=== PATIENT | female | born 1945 | race Caucasian/White ===

== ENCOUNTER 2018-01-29 03:23 | Inpatient (IN) | payer OTHER, MEDICARE ==
[~2018-01-29] VITALS: Ht 162.6 cm; Wt 59.0 kg
[2018-01-29] VITALS (9 sets, daily range): BP systolic 117–145; BP diastolic 58–78; PULSE 62–84; RESP 16–19; TEMP 97.8–98.3; O2SAT 93–100
[2018-01-29] MEDS ORDERED: APIX5TAB PO (03:39)
[2018-01-29] MEDS ORDERED: AMIO0.1T PO (03:39)
[2018-01-29] MEDS ORDERED: SYNT25TA PO (03:39)
[2018-01-29] MEDS ORDERED: VENL100T PO (03:39)
[2018-01-29] MEDS ORDERED: SODIUM CHLORIDE 0.9% FLUSH 10 ML FLUSH IVF PRN (04:00)
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
[2018-01-29 04:27] LABS: AUTOMATED NEUTROPHIL # 18.5 TH/MM3 (1.8-7.7); BASOPHIL % 0.2 % (0.0-2.0); HEMATOCRIT 29.4 % (35.0-46.0); HEMOGLOBIN 10.1 GM/DL (11.6-15.3); LYMPH % 2.5 % (9.0-44.0); LYMPHOCYTE # 0.5 TH/MM3 (1.0-4.8); MEAN CELL VOLUME 95.5 FL (80.0-100.0); MEAN CORPUSCULAR HEMOGLOBIN 32.7 PG (27.0-34.0); MEAN CORPUSCULAR HGB CONC 34.2 % (32.0-36.0); MEAN PLATELET VOLUME 8.9 FL (7.0-11.0); MONO % 5.6 % (0.0-8.0); MONOCYTE # 1.1 TH/MM3 (0-0.9); NEUT % 91.7 % (16.0-70.0); PLATELET COUNT 254 TH/MM3 (150-450); RED BLOOD COUNT 3.08 MIL/MM3 (4.00-5.30); RED CELL DISTRIBUTION WIDTH 13.6 % (11.6-17.2); WHITE BLOOD COUNT 20.2 TH/MM3 (4.0-11.0)
[2018-01-29 04:35] LABS: BICARBONATE 27.6 MEQ/L (21.0-32.0); CALCIUM 6.5 MG/DL (8.5-10.1); CREATININE 0.93 MG/DL (0.50-1.00)
[2018-01-29 04:36] LABS: INTERNATIONAL NORMALIZED RATIO 1.1 RATIO; PROTHROMBIN TIME - PATIENT 10.8 SEC (9.8-11.6)
[2018-01-29] MEDS ORDERED: CHLORHEXIDINE GLUCONATE 2 % 1 PACK (2 CLOTHS) TOP PRN (04:45)
[2018-01-29] MEDS ORDERED: NURSING INFORMATION XX SCH (04:45)
[2018-01-29 04:48] LABS: TOTAL PROTEIN 6.1 GM/DL (6.4-8.2)
[2018-01-29 05:00] LABS: BANDS 7 % (0-6); LYMPHOCYTES 5 % (9-44); MONOCYTES 3 % (0-8); NEUTROPHIL # MANUAL DIFF 18.6 TH/MM3 (1.8-7.7); POLYS (SEG NEUTROPHILS) 85 % (16-70)
[2018-01-29 05:01] LABS: TOXIC GRANULATION 1+ (NORMAL)
[2018-01-29] MEDS ORDERED: MORPHINE SULFATE 4 MG/ML INJ IV PUSH PRN ×3 (06:15→11:00)
[2018-01-29] MEDS: ONDANSETRON HCL 4 MG/2 ML VIAL IV PUSH PRN ×4 (06:21→22:54)
[2018-01-29] MEDS: MORPHINE SULFATE 4 MG/ML INJ IV PUSH PRN ×2 (06:22→09:10)
[2018-01-29 07:59] LABS: HEMATOCRIT 29.8 % (35.0-46.0); HEMOGLOBIN 9.9 GM/DL (11.6-15.3)
[2018-01-29] MEDS: DOCUSATE SODIUM 100 MG CAP PO SCH ×3 (09:10→21:00)
[2018-01-29] MEDS: SODIUM CHLORIDE 0.9% FLUSH 10 ML FLUSH IV FLUSH PRN (09:11)
[2018-01-29] MEDS: LACTATED RINGER'S 1000 ML INJ 1,000 ML IV SCH ×3 (09:12→20:04)
[2018-01-29] MEDS: LIDOCAINE HCL 5% PATCH T-DERMAL SCH (10:39)
[2018-01-29] MEDS: LEVOTHYROXINE SODIUM 25 MCG TAB PO SCH (10:39)
[2018-01-29] MEDS: DIAZEPAM 2 MG TAB PO SCH ×2 (11:31→20:03)
[2018-01-29 11:32] LABS: HEMATOCRIT 28.6 % (35.0-46.0); HEMOGLOBIN 9.6 GM/DL (11.6-15.3)
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
[2018-01-29] MEDS: AMIODARONE 200 MG TAB PO SCH (12:38)
[2018-01-29] MEDS: ACETAMINOPHEN/HYDROcodone 325 MG/5 MG TAB PO PRN (13:41)
[2018-01-29] MEDS: VENLAFAXINE HCL 75 MG TAB PO SCH (14:39)
[2018-01-29] MEDS: ACETAMINOPHEN/HYDROcodone 325 MG/7.5 MG TAB PO PRN (17:13)
[2018-01-29] MEDS: REMOVE OLD PATCH T-DERMAL SCH (20:03)
[2018-01-29] MEDS ORDERED: ONDANSETRON HCL 4 MG/2 ML VIAL IV PUSH ONE (21:15)
[2018-01-29] MEDS ORDERED: ACETAMINOPHEN 325 MG TAB PO PRN (22:00)
[2018-01-30] VITALS (13 sets, daily range): BP systolic 142–181; BP diastolic 66–79; PULSE 70–87; RESP 14–27; TEMP 97.9–98.4; O2SAT 92–100
[2018-01-30] MEDS: ACETAMINOPHEN 325 MG TAB PO PRN ×2 (02:26→08:41)
[2018-01-30] MEDS: DIAZEPAM 2 MG TAB PO SCH ×3 (03:20→21:09)
[2018-01-30] MEDS: ONDANSETRON HCL 4 MG/2 ML VIAL IV PUSH PRN ×3 (03:20→12:15)
[2018-01-30] MEDS: CHLORHEXIDINE GLUCONATE 2 % 1 PACK (2 CLOTHS) TOP SCH ×2 (03:38→21:11)
--- NOTE | 2018-01-30 03:45 | RADRPT ---
EXAM DATE/TIME: 01/30/2018 02:50 [facility] COMPARISON: No previous studies available for comparison. INDICATIONS : Short of breath. MEDICAL HISTORY : None. SURGICAL HISTORY : None. ENCOUNTER: Initial ACUITY: 1 day PAIN SCORE: 0/10 LOCATION: Bilateral chest FINDINGS: A single view of the chest demonstrates the lungs to be symmetrically aerated without evidence of mas s, infiltrate or effusion. The cardiomediastinal contours are unremarkable. Questionable right fifth rib fracture. CONCLUSION: Lungs are grossly clear. Question right fifth rib fracture, age indeterminate. Jefry Jain MD on January 30, 2018 at 3:43 Board Certified Radiologist. This report was verified electronically.
[2018-01-30] MEDS: LEVOTHYROXINE SODIUM 25 MCG TAB PO SCH (06:00)
[2018-01-30 06:57] LABS: AUTOMATED NEUTROPHIL # 10.8 TH/MM3 (1.8-7.7); BASOPHIL % 0.3 % (0.0-2.0); EOSINOPHIL % 0.1 % (0.0-4.0); HEMATOCRIT 24.7 % (35.0-46.0); HEMOGLOBIN 8.3 GM/DL (11.6-15.3); LYMPH % 6.4 % (9.0-44.0); LYMPHOCYTE # 0.8 TH/MM3 (1.0-4.8); MEAN CELL VOLUME 96.2 FL (80.0-100.0); MEAN CORPUSCULAR HEMOGLOBIN 32.5 PG (27.0-34.0); MEAN CORPUSCULAR HGB CONC 33.8 % (32.0-36.0); MEAN PLATELET VOLUME 8.5 FL (7.0-11.0); MONO % 6.7 % (0.0-8.0); MONOCYTE # 0.8 TH/MM3 (0-0.9); NEUT % 86.5 % (16.0-70.0); PLATELET COUNT 241 TH/MM3 (150-450); RED BLOOD COUNT 2.56 MIL/MM3 (4.00-5.30); RED CELL DISTRIBUTION WIDTH 13.3 % (11.6-17.2); WHITE BLOOD COUNT 12.5 TH/MM3 (4.0-11.0)
[2018-01-30 07:28] LABS: BICARBONATE 28.2 MEQ/L (21.0-32.0); CALCIUM 6.8 MG/DL (8.5-10.1); CREATININE 0.64 MG/DL (0.50-1.00)
[2018-01-30 07:44] LABS: TOTAL PROTEIN 6.4 GM/DL (6.4-8.2)
[2018-01-30 07:49] LABS: CALCIUM-PROTEIN CORRECTED 7.2 MG/DL (8.5-10.1)
[2018-01-30] MEDS: AMIODARONE 200 MG TAB PO SCH (08:32)
[2018-01-30] MEDS: VENLAFAXINE HCL 75 MG TAB PO SCH (08:32)
[2018-01-30] MEDS: DOCUSATE SODIUM 100 MG CAP PO SCH ×2 (08:32→21:09)
[2018-01-30] MEDS: LIDOCAINE HCL 5% PATCH T-DERMAL SCH (08:33)
[2018-01-30] MEDS: ACETAMINOPHEN 1000 MG/100 ML 100 ML IV SCH ×3 (10:00→21:11)
[2018-01-30] MEDS: FAMOTIDINE 20 MG/2 ML VIAL IV PUSH SCH ×2 (10:15→21:10)
[2018-01-30] MEDS: LACTATED RINGER'S 1000 ML INJ 1,000 ML IV SCH ×2 (10:38→14:39)
[2018-01-30] MEDS ORDERED: IOHEXOL 350 MG/ML 10 ML VIAL (for RAD DIAG) IVCONTRAST ONE (11:25)
--- NOTE | 2018-01-30 11:38 | EKG ---
Date Performed: 01/29/2018 Time Performed: 13:26:44 PTAGE: 72 years EKG: Sinus rhythm NORMAL ECG NO PREVIOUS TRACING DOCTOR: Jonnathan Orourke Interpretating Date/Time 01/30/2018 11:37:20
--- NOTE | 2018-01-30 11:45 | RADRPT ---
EXAM DATE/TIME: 01/30/2018 11:22 [facility] COMPARISON: CHEST SINGLE AP, January 30, 2018, 2:50. INDICATIONS : Shortness of breath. IV CONTRAST: 96 cc Omnipaque 350 (iohexol) IV RADIATION DOSE: 5.74 CTDIvol (mGy) MEDICAL HISTORY : Cardiovascular disease. SURGICAL HISTORY : Hysterectomy. ENCOUNTER: Initial ACUITY: 1 day PAIN SCALE: 0/10 LOCATION: Bilateral chest TECHNIQUE: Volumetric scanning of the chest was performed. Using automated exposure control and adjustment of t he mA and/or kV according to patient size, radiation dose was kept as low as reasonably achievable to obtain optimal diagnostic quality images. DICOM format image data is available electronically for review and comparison. Follow-up recommendations for detected pulmonary nodules are based at a minimum on nodule size and pa tient risk factors according to Fleischner Society Guidelines. FINDINGS: LUNGS: Areas of passive atelectasis adjacent to the effusions. It is more pronounced on the left than the ri ght. The aerated portions of lungs are clear. No bronchiectasis or pneumothorax. PLEURA: Small posterior layering pleural effusions bilaterally. MEDIASTINUM: The heart and great vessels demonstrate no acute abnormality. There is no mediastinal or hilar lymph adenopathy. No retrosternal hematoma. AXILLAE: Within normal limits. No lymphadenopathy. SKELETAL: Within normal limits for patient age. An old right fifth rib fracture laterally. MISCELLANEOUS: See the CT of the abdomen and pelvis reported separately.. CONCLUSION: 1. Small posterior layering pleural effusions bilaterally with associated passive atelectasis. 2. No retrosternal hematoma. Sebastien Salguero Jr., MD on January 30, 2018 at 11:38 Board Certified Radiologist. This report was verified electronically.
--- NOTE | 2018-01-30 12:04 | RADRPT ---
EXAM DATE/TIME: 01/30/2018 11:22 [facility] COMPARISON: No previous studies available for comparison. EXTERNAL COMPARISON : [facility], INDICATIONS : Diffuse abdomen pain. IV CONTRAST: 96 cc Omnipaque 350 (iohexol) IV ; Cumulative dose for multiple exams. ORAL CONTRAST: Prescribed oral contrast ingested. RADIATION DOSE: 5.74 CTDIvol (mGy) ; Combined studies MEDICAL HISTORY : Cardiovascular disease. SURGICAL HISTORY : Hysterectomy. ENCOUNTER: Initial ACUITY: 1 day PAIN SCALE: 5/10 LOCATION: Bilateral abdomen TECHNIQUE: Volumetric scanning of the abdomen and pelvis was performed. Using automated exposure control and ad justment of the mA and/or kV according to patient size, radiation dose was kept as low as reasonably achievable to obtain optimal diagnostic quality images. DICOM format image data is available electro nically for review and comparison. FINDINGS: LOWER LUNGS: There are mild bilateral pleural effusions with accompanying areas of suspected compressive atelectas is at the lung bases. LIVER: The liver demonstrates decreased attenuation. There is a 0.9 cm suspected cyst in the left lobe. Ther e is high density layering material within the gallbladder likely related to vicarious excretion of c ontrast if the patient had recent contrast administration versus milk of calcium. SPLEEN: Normal size without lesion. PANCREAS: Within normal limits. KIDNEYS: Normal in size and shape. There is no mass, stone or hydronephrosis. ADRENAL GLANDS: Within normal limits. VASCULAR: There is no aortic aneurysm. Atherosclerotic calcifications are seen. BOWEL/MESENTERY: There is a 3.2 cm duodenal diverticulum. There are colonic diverticula seen being most numerous in th e sigmoid region. There is a mild amount of free fluid seen around the liver and spleen and in the mi d and lower pelvis. This appears somewhat increased in density raising the possibility of hemorrhage. The the fluid includes a more focal area in the mid pelvis measuring 5.2 x 5.6 x 4.3 cm which may be a hematoma in the lower mesentery. It is difficult to determine if this fluid is free or not. ABDOMINAL WALL: Within normal limits. RETROPERITONEUM: There is no lymphadenopathy. BLADDER: No wall thickening or mass. REPRODUCTIVE: The patient is status post hysterectomy. INGUINAL: There is no lymphadenopathy or hernia. MUSCULOSKELETAL: Within normal limits for patient age. CONCLUSION: 1. Free intraperitoneal fluid. This is of increased density raising the possibility of this being a h emoperitoneum. There is a more focal 5.6 cm fluid collection in the mid pelvis which may be a mesente cedric hematoma. 2. Mild hepatic steatosis. 3. Colonic diverticula. 4. Duodenal diverticulum. 5. Increased density within the gallbladder likely related to vicarious excretion if the patient had recent contrast administration versus milk of calcium. 6. Mild bilateral pleural effusions with accompanying areas of atelectasis. Miguel Alfredo MD on January 30, 2018 at 11:47 Board Certified Radiologist. This report was verified electronically.
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
[2018-01-30] MEDS: REMOVE OLD PATCH T-DERMAL SCH (21:11)
[2018-01-31] VITALS (17 sets, daily range): BP systolic 139–188; BP diastolic 65–93; PULSE 64–107; RESP 13–27; TEMP 97.2–98.7; O2SAT 92–100
[2018-01-31 05:07] LABS: AUTOMATED NEUTROPHIL # 11.9 TH/MM3 (1.8-7.7); BASOPHIL # 0.1 TH/MM3 (0-0.2); BASOPHIL % 0.6 % (0.0-2.0); EOSINOPHIL # 0.2 TH/MM3 (0-0.4); EOSINOPHIL % 1.2 % (0.0-4.0); HEMATOCRIT 23.2 % (35.0-46.0); HEMOGLOBIN 7.9 GM/DL (11.6-15.3); LYMPH % 3.9 % (9.0-44.0); LYMPHOCYTE # 0.5 TH/MM3 (1.0-4.8); MEAN CELL VOLUME 96.6 FL (80.0-100.0); MEAN CORPUSCULAR HGB CONC 34.2 % (32.0-36.0); MEAN PLATELET VOLUME 8.2 FL (7.0-11.0); MONO % 5.6 % (0.0-8.0); MONOCYTE # 0.7 TH/MM3 (0-0.9); NEUT % 88.7 % (16.0-70.0); PLATELET COUNT 223 TH/MM3 (150-450); RED CELL DISTRIBUTION WIDTH 13.3 % (11.6-17.2); WHITE BLOOD COUNT 13.4 TH/MM3 (4.0-11.0)
[2018-01-31] MEDS: ACETAMINOPHEN 1000 MG/100 ML 100 ML IV SCH ×3 (05:24→17:49)
[2018-01-31] MEDS: DIAZEPAM 2 MG TAB PO SCH ×3 (05:24→20:12)
[2018-01-31] MEDS: ACETAMINOPHEN/HYDROcodone 325 MG/7.5 MG TAB PO PRN (05:25)
[2018-01-31 05:37] LABS: CALCIUM 6.7 MG/DL (8.5-10.1); CREATININE 0.54 MG/DL (0.50-1.00); TOTAL BILIRUBIN ADULT 0.4 MG/DL (0.2-1.0); TOTAL PROTEIN 6.1 GM/DL (6.4-8.2)
[2018-01-31 05:41] LABS: CALCIUM-PROTEIN CORRECTED 7.2 MG/DL (8.5-10.1)
--- NOTE | 2018-01-31 06:06 | RADRPT ---
EXAM DATE/TIME: 01/31/2018 05:30 [facility] COMPARISON: CHEST SINGLE AP, January 30, 2018, 2:50. INDICATIONS : Short of breath. MEDICAL HISTORY : None. SURGICAL HISTORY : None. ENCOUNTER: Subsequent ACUITY: 2 days PAIN SCORE: Non-responsive. LOCATION: Bilateral chest FINDINGS: A single view of the chest demonstrates persistent bilateral lower lobe infiltrates and small bilater al pleural effusions. Diffuse pulmonary vascular congestion. The cardiomediastinal contours are unre markable. Osseous structures are intact. CONCLUSION: Bilateral lower lobe infiltrates with small pleural effusions. Patchy perihilar infiltrates are uncha nged Jefry Jain MD on January 31, 2018 at 6:04 Board Certified Radiologist. This report was verified electronically.
[2018-01-31] MEDS: LEVOTHYROXINE SODIUM 25 MCG TAB PO SCH (06:55)
[2018-01-31] MEDS: DOCUSATE SODIUM 100 MG CAP PO SCH ×2 (08:43→20:12)
[2018-01-31] MEDS: FAMOTIDINE 20 MG/2 ML VIAL IV PUSH SCH ×2 (08:43→20:12)
[2018-01-31] MEDS: VENLAFAXINE HCL 75 MG TAB PO SCH (08:43)
[2018-01-31] MEDS: AMIODARONE 200 MG TAB PO SCH (08:43)
[2018-01-31] MEDS: LIDOCAINE HCL 5% PATCH T-DERMAL SCH (08:43)
[2018-01-31] MEDS: LACTATED RINGER'S 1000 ML INJ 1,000 ML IV SCH (09:34)
[2018-01-31] MEDS ORDERED: FUROSEMIDE 20 MG/2 ML VIAL IV PUSH ONE ×2 (09:45→13:30)
[2018-01-31] MEDS: GABAPENTIN 300 MG CAP PO SCH ×2 (12:34→17:49)
[2018-01-31] MEDS ORDERED: POTASSIUM CHLORIDE 20 MEQ CONTROLLED RELEASE TAB PO ONE (13:30)
[2018-01-31] MEDS ORDERED: POTASSIUM CHLOR 20 MEQ PREMIX 100 ML IV ONE (13:30)
[2018-01-31] MEDS ORDERED: POTASSIUM CHLOR 40 MEQ PREMIX 100 ML IV PRN ×2 (13:45)
[2018-01-31] MEDS ORDERED: POTASSIUM PHOSPHATE INJ 30 MMOL in SODIUM CHLOR 0.9% 250 ML INJ 250 ML IV PRN (13:45)
[2018-01-31] MEDS ORDERED: SODIUM PHOSPHATE INJ 30 MMOL in SODIUM CHLOR 0.9% 250 ML INJ 240 ML IV PRN (13:45)
[2018-01-31] MEDS ORDERED: MAGNESIUM OXIDE 400 MG TAB PO PRN (13:45)
[2018-01-31] MEDS ORDERED: POTASSIUM PHOSPHATE MONOBASIC 500 MG TAB PO PRN (13:45)
[2018-01-31] MEDS ORDERED: MAGNESIUM SULFATE INJ 2 GM in SODIUM CHLORIDE 0.9% INJ 96 ML IV PRN (13:45)
[2018-01-31] MEDS ORDERED: POTASSIUM PHOSPHATE MONOBASIC 500 MG TAB PO/TUBE PRN (13:45)
[2018-01-31] MEDS ORDERED: POTASSIUM CHLORIDE 25 MEQ EFFERVESCENT TAB PO PRN ×2 (13:45)
[2018-01-31] MEDS ORDERED: POTASSIUM CHLOR 20 MEQ PREMIX 100 ML IV PRN ×2 (13:45)
[2018-01-31] MEDS ORDERED: MAGNESIUM SULFATE INJ 4 GM in SODIUM CHLORIDE 0.9% INJ 92 ML IV PRN (13:45)
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
[2018-01-31 14:36] LABS: BICARBONATE 32.2 MEQ/L (21.0-32.0); BLOOD UREA NITROGEN 6 MG/DL (7-18); CHLORIDE 88 MEQ/L (98-107); CREATININE 0.52 MG/DL (0.50-1.00); GLOMERULAR FILTRATION RATE 116 ML/MIN (>89); GLUCOSE,RANDOM 117 MG/DL (74-106); SODIUM (NA) 131 MEQ/L (136-145)
[2018-01-31 14:54] LABS: TOTAL PROTEIN 6.9 GM/DL (6.4-8.2); TROPONIN I LESS THAN 0.02 NG/ML (0.02-0.05)
[2018-01-31 15:02] LABS: CALCIUM-PROTEIN CORRECTED 7.1 MG/DL (8.5-10.1)
[2018-01-31] MEDS: HYDROmorphone HCL PF 0.5 MG/0.5 ML SYRINGE IV PUSH PRN ×2 (15:17→21:27)
--- NOTE | 2018-01-31 17:07 | EKG ---
Date Performed: 01/31/2018 Time Performed: 14:08:28 PTAGE: 72 years EKG: Atrial fibrillation with rapid ventricular response. Left axis deviation Left bundle branch block Possible inferior infarct - age undetermined Abnormal ECG PREVIOUS TRACING : 01/29/2018 13.26 DOCTOR: Jefry Mccarty Interpretating Date/Time 01/31/2018 17:06:30
[2018-01-31] MEDS: SODIUM CHLOR 0.9% 1000 ML INJ 1,000 ML IV SCH (17:50)
[2018-01-31] MEDS: REMOVE OLD PATCH T-DERMAL SCH (20:17)
--- NOTE | 2018-01-31 20:30 | ECHRPT ---
Indication: CONCLUSIONS The left ventricular systolic function is normal with an estimated ejection fraction in the range of 55-60%. Trace mitral valve regurgitation. There is mild tricuspid valve regurgitation. A left sided pleural effusion is present. BP: / HR: Rhythm: Sinus MEASUREMENTS (Male / Female) Normal Values Technical Quality:Fair 2D ECHO LV Diastolic Diameter PLAX 4.1 cm 4.2 - 5.9 / 3.9 - 5.3 cm LV Systolic Diameter PLAX 2.8 cm IVS Diastolic Thickness 0.8 cm 0.6 - 1.0 / 0.6 - 0.9 cm LVPW Diastolic Thickness 0.8 cm 0.6 - 1.0 / 0.6 - 0.9 cm LV Relative Wall Thickness 0.4 RV Internal Dim ED PLAX 2.2 cm LVOT Diameter 1.8 cm Aortic Root Diameter 2.9 cm LA Systolic Diameter LX 3.4 cm 3.0 - 4.0 / 2.7 - 3.8 cm M-MODE AV Cusp Separation MM 1.8 cm DOPPLER AV Peak Velocity 142.0 cm/s AV Peak Gradient 8.1 mmHg AV Mean Gradient 5.0 mmHg AV Velocity Time Integral 28.5 cm LVOT Peak Velocity 97.8 cm/s LVOT Peak Gradient 3.8 mmHg LVOT Velocity Time Integral 19.5 cm AV Area Cont Eq vti 1.7 cm AV Area Cont Eq pk 1.8 cm Mitral E Point Velocity 86.9 cm/s Mitral A Point Velocity 85.4 cm/s Mitral E to A Ratio 1.0 LV E' Lateral Velocity 9.8 cm/s Mitral E to LV E' Lateral Ratio 8.8 LV E' Septal Velocity 6.7 cm/s Mitral E to LV E' Septal Ratio 12.9 TR Peak Velocity 300.0 cm/s TR Peak Gradient 36.0 mmHg Right Atrial Pressure 10.0 mmHg Pulmonary Artery Systolic Pressu 46.0 mmHg Right Ventricular Systolic Press 46.0 mmHg PV Peak Velocity 76.7 cm/s PV Peak Gradient 2.4 mmHg FINDINGS LEFT VENTRICLE Normal left ventricular size. Wall thickness is normal. The left ventricular systolic function is normal with an estimated ejection fraction in the range of 55-60%. RIGHT VENTRICLE Normal right ventricular size and systolic function. LEFT ATRIUM The left atrial size is [id number] dilated. RIGHT ATRIUM The right atrial size is mildly dilated. ATRIAL SEPTUM No atrial level shunt is demonstrated by color flow Doppler interrogation. AORTA The aortic root and proximal ascending aorta are normal in size on limited imaging. MITRAL VALVE Grossly normal Trace mitral valve regurgitation. No mitral valve stenosis. AORTIC VALVE Grossly normal. No aortic valve stenosis or regurgitation. TRICUSPID VALVE Grossly normal There is mild tricuspid valve regurgitation. The estimated pulmonary arterial pressure is 46 mmHg. PULMONARY VALVE The pulmonary valve is not well visualized. VESSELS The inferior vena cava is normal in size. PERICARDIUM No pericardial effusion. A left sided pleural effusion is present. Barrett Hayes DO (Electronically Signed) Final Date:31 Jan 2018 20:29
[2018-01-31 23:45] LABS: AUTOMATED NEUTROPHIL # 9.2 TH/MM3 (1.8-7.7); BASOPHIL % 0.2 % (0.0-2.0); EOSINOPHIL % 0.3 % (0.0-4.0); HEMATOCRIT 29.1 % (35.0-46.0); HEMOGLOBIN 10.2 GM/DL (11.6-15.3); LYMPH % 5.7 % (9.0-44.0); LYMPHOCYTE # 0.6 TH/MM3 (1.0-4.8); MEAN CELL VOLUME 95.3 FL (80.0-100.0); MEAN CORPUSCULAR HEMOGLOBIN 33.5 PG (27.0-34.0); MEAN CORPUSCULAR HGB CONC 35.1 % (32.0-36.0); MEAN PLATELET VOLUME 8.1 FL (7.0-11.0); MONO % 7.1 % (0.0-8.0); MONOCYTE # 0.8 TH/MM3 (0-0.9); NEUT % 86.7 % (16.0-70.0); PLATELET COUNT 235 TH/MM3 (150-450); RED BLOOD COUNT 3.05 MIL/MM3 (4.00-5.30); RED CELL DISTRIBUTION WIDTH 13.1 % (11.6-17.2); WHITE BLOOD COUNT 10.6 TH/MM3 (4.0-11.0)
[2018-01-31 23:59] LABS: BICARBONATE 34.2 MEQ/L (21.0-32.0); CALCIUM 6.8 MG/DL (8.5-10.1); CREATININE 0.55 MG/DL (0.50-1.00)
[2018-02-01] VITALS (13 sets, daily range): BP systolic 110–183; BP diastolic 58–81; PULSE 102–114; RESP 13–19; TEMP 97.3–98.7; O2SAT 92–100
[2018-02-01 00:12] LABS: TOTAL PROTEIN 6.9 GM/DL (6.4-8.2)
[2018-02-01 00:22] LABS: CALCIUM-PROTEIN CORRECTED 6.9 MG/DL (8.5-10.1)
[2018-02-01] MEDS: ACETAMINOPHEN 1000 MG/100 ML 100 ML IV SCH ×4 (00:37→15:51)
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
[2018-02-01] MEDS: CHLORHEXIDINE GLUCONATE 2 % 1 PACK (2 CLOTHS) TOP SCH (03:12)
[2018-02-01] MEDS: DIAZEPAM 2 MG TAB PO SCH ×3 (04:40→20:41)
[2018-02-01] MEDS: LEVOTHYROXINE SODIUM 25 MCG TAB PO SCH (04:40)
--- NOTE | 2018-02-01 06:18 | RADRPT ---
EXAM DATE/TIME: 02/01/2018 04:36 [facility] COMPARISON: CHEST SINGLE AP, January 31, 2018, 5:30. INDICATIONS : Shortness of breath. MEDICAL HISTORY : None. SURGICAL HISTORY : None. ENCOUNTER: Subsequent ACUITY: 3 days PAIN SCORE: Non-responsive. LOCATION: Bilateral chest FINDINGS: A single view of the chest demonstrates some increasing obscured left lung base. Small bilateral pleu ral effusions. Mild pulmonary vascular congestion, improved.. The cardiomediastinal contours are unr emarkable. Osseous structures are intact. CONCLUSION: Bilateral pleural effusions with some consolidation in the left lung base. Jefry Jain MD on February 01, 2018 at 6:16 Board Certified Radiologist. This report was verified electronically.
[2018-02-01] MEDS: POLYETHYLENE GLYCOL 17 GM PKG PO SCH (09:00)
[2018-02-01] MEDS: DOCUSATE SODIUM 50 MG/SENNA 8.6 MG TAB PO SCH ×2 (09:45→20:38)
[2018-02-01] MEDS: AMIODARONE 200 MG TAB PO SCH (10:53)
[2018-02-01] MEDS: VENLAFAXINE HCL 75 MG TAB PO SCH (10:53)
[2018-02-01] MEDS: FAMOTIDINE 20 MG TAB PO SCH ×2 (10:53→20:41)
[2018-02-01] MEDS: GABAPENTIN 300 MG CAP PO SCH ×3 (10:53→15:51)
[2018-02-01] MEDS: LIDOCAINE HCL 5% PATCH T-DERMAL SCH (10:55)
[2018-02-01] MEDS: HYDROmorphone HCL PF 0.5 MG/0.5 ML SYRINGE IV PUSH PRN ×3 (11:03→21:55)
[2018-02-01] MEDS: SODIUM CHLOR 0.9% 1000 ML INJ 1,000 ML IV SCH ×2 (13:30→15:57)
[2018-02-01] MEDS: ACETAMINOPHEN/HYDROcodone 325 MG/7.5 MG TAB PO PRN ×2 (14:13→20:41)
[2018-02-01] MEDS: ONDANSETRON HCL 4 MG/2 ML VIAL IV PUSH PRN (14:14)
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
[2018-02-01] MEDS: REMOVE OLD PATCH T-DERMAL SCH (20:49)
[2018-02-02] VITALS (10 sets, daily range): BP systolic 109–145; BP diastolic 55–69; PULSE 97–117; RESP 17–18; TEMP 97.2–98.2; O2SAT 91–98
[2018-02-02] MEDS: ACETAMINOPHEN/HYDROcodone 325 MG/7.5 MG TAB PO PRN ×3 (02:11→10:23)
[2018-02-02] MEDS: CHLORHEXIDINE GLUCONATE 2 % 1 PACK (2 CLOTHS) TOP SCH (04:00)
[2018-02-02] MEDS: HYDROmorphone HCL PF 0.5 MG/0.5 ML SYRINGE IV PUSH PRN ×2 (04:10→08:14)
[2018-02-02] MEDS: DIAZEPAM 2 MG TAB PO SCH ×3 (04:10→21:23)
[2018-02-02 05:12] LABS: HEMATOCRIT 29.8 % (35.0-46.0); HEMOGLOBIN 10.3 GM/DL (11.6-15.3)
[2018-02-02] MEDS: LEVOTHYROXINE SODIUM 25 MCG TAB PO SCH (06:14)
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
[2018-02-02] MEDS ORDERED: PERI PO (06:29)
[2018-02-02] MEDS ORDERED: AMIO200T PO (06:29)
[2018-02-02] MEDS ORDERED: WALKER WHEELS/F1 MIS (06:32)
[2018-02-02] MEDS: LACTULOSE SYRUP 20 GM/30 ML CUP PO ONE ×2 (08:00→10:16)
[2018-02-02] MEDS: AMIODARONE 200 MG TAB PO SCH (08:13)
[2018-02-02] MEDS: GABAPENTIN 300 MG CAP PO SCH ×3 (08:13→17:56)
[2018-02-02] MEDS: LIDOCAINE HCL 5% PATCH T-DERMAL SCH (08:13)
[2018-02-02] MEDS: FAMOTIDINE 20 MG TAB PO SCH ×2 (08:13→21:23)
[2018-02-02] MEDS: VENLAFAXINE HCL 75 MG TAB PO SCH (08:13)
[2018-02-02] MEDS: DOCUSATE SODIUM 50 MG/SENNA 8.6 MG TAB PO SCH ×3 (08:14→21:00)
[2018-02-02] MEDS: POLYETHYLENE GLYCOL 17 GM PKG PO SCH (08:14)
[2018-02-02] MEDS ORDERED: fentaNYL 50 MCG/HR PATCH T-DERMAL SCH (11:00)
[2018-02-02] MEDS ORDERED: FENT50T T-DERMAL (11:17)
[2018-02-02] MEDS ORDERED: HYDR-3583 PO (11:17)
[2018-02-02] MEDS ORDERED: DIAZ2 PO (11:17)
[2018-02-02] MEDS: fentaNYL 50 MCG/HR PATCH T-DERMAL SCH (12:02)
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
[2018-02-02] MEDS: ACETAMINOPHEN/HYDROcodone 325 MG/5 MG TAB PO PRN ×2 (14:25→17:56)
[2018-02-02] MEDS ORDERED: ONDANSETRON ODT 4 MG TAB PO PRN (15:45)
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
[2018-02-02] MEDS ORDERED: METOPROLOL TARTRATE 25 MG TAB PO ONE (18:30)
[2018-02-02] MEDS: REMOVE OLD PATCH T-DERMAL SCH (21:00)
[2018-02-03] VITALS (7 sets, daily range): BP systolic 122–140; BP diastolic 55–76; PULSE 70–127; RESP 16–18; TEMP 97.1–97.9; O2SAT 93–98
[2018-02-03 03:40] LABS: HEMATOCRIT 28.8 % (35.0-46.0); HEMOGLOBIN 9.8 GM/DL (11.6-15.3)
[2018-02-03] MEDS: DIAZEPAM 2 MG TAB PO SCH ×3 (04:34→20:26)
[2018-02-03] MEDS: LEVOTHYROXINE SODIUM 25 MCG TAB PO SCH (04:35)
[2018-02-03] MEDS: DOCUSATE SODIUM 50 MG/SENNA 8.6 MG TAB PO SCH ×2 (08:03→20:27)
[2018-02-03] MEDS: FAMOTIDINE 20 MG TAB PO SCH ×2 (08:03→20:27)
[2018-02-03] MEDS: AMIODARONE 200 MG TAB PO SCH (08:03)
[2018-02-03] MEDS: GABAPENTIN 300 MG CAP PO SCH ×3 (08:03→17:52)
[2018-02-03] MEDS: POLYETHYLENE GLYCOL 17 GM PKG PO SCH (08:03)
[2018-02-03] MEDS: ACETAMINOPHEN/HYDROcodone 325 MG/5 MG TAB PO PRN ×2 (08:04→20:29)
[2018-02-03] MEDS: LIDOCAINE HCL 5% PATCH T-DERMAL SCH (08:04)
[2018-02-03] MEDS: VENLAFAXINE HCL 75 MG TAB PO SCH (08:19)
[2018-02-03] MEDS ORDERED: METOPROLOL TARTRATE 25 MG TAB PO SCH (09:00)
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
[2018-02-03] MEDS: APIXABAN 5 MG TABLET PO SCH ×2 (12:25→20:27)
[2018-02-03] MEDS ORDERED: BISACODYL 10 MG SUPP RECTAL ONE (14:00)
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
[2018-02-03] MEDS ORDERED: METOPROLOL TARTRATE 25 MG TAB PO ONE (15:15)
[2018-02-03] MEDS ORDERED: METO25TA3 PO (16:20)
[2018-02-03] MEDS ORDERED: LIDO1ADH4 T-DERMAL (16:20)
[2018-02-03] MEDS: METOPROLOL TARTRATE 25 MG TAB PO SCH (20:27)
[2018-02-03] MEDS: REMOVE OLD PATCH T-DERMAL SCH (20:30)
[2018-02-04] MEDS: ACETAMINOPHEN/HYDROcodone 325 MG/5 MG TAB PO PRN ×2 (02:10→21:17)
[2018-02-04 03:25] VITALS: BP 130/60; PULSE 106; RESP 17; TEMP 98.1; O2SAT 99
[2018-02-04] MEDS: DIAZEPAM 2 MG TAB PO SCH (05:36)
[2018-02-04] MEDS: LEVOTHYROXINE SODIUM 25 MCG TAB PO SCH (05:37)
[2018-02-04] MEDS ORDERED: OXYGENTANK NAS.CANULA (06:18)
[2018-02-04] MEDS ORDERED: NORC5TAB PO (07:54)
[2018-02-04] MEDS ORDERED: ROBA500T PO (07:54)
[2018-02-04 08:00] VITALS: BP 128/60; PULSE 105; RESP 16; TEMP 98; O2SAT 96
[2018-02-04] MEDS ORDERED: MAGNESIUM CITRATE SOLN 300 ML BTL PO ONE (08:00)
[2018-02-04] MEDS: FAMOTIDINE 20 MG TAB PO SCH ×2 (09:18→21:18)
[2018-02-04] MEDS: GABAPENTIN 300 MG CAP PO SCH ×3 (09:19→18:11)
[2018-02-04] MEDS: METOPROLOL TARTRATE 25 MG TAB PO SCH ×2 (09:19→21:18)
[2018-02-04] MEDS: APIXABAN 5 MG TABLET PO SCH ×2 (09:19→21:18)
[2018-02-04] MEDS: DOCUSATE SODIUM 50 MG/SENNA 8.6 MG TAB PO SCH ×2 (09:19→21:00)
[2018-02-04] MEDS: AMIODARONE 200 MG TAB PO SCH (09:19)
[2018-02-04] MEDS: POLYETHYLENE GLYCOL 17 GM PKG PO SCH (09:20)
[2018-02-04] MEDS: LIDOCAINE HCL 5% PATCH T-DERMAL SCH (09:21)
[2018-02-04] MEDS: VENLAFAXINE HCL 75 MG TAB PO SCH (09:23)
[2018-02-04 11:08] VITALS: O2SAT 92
[2018-02-04 12:00] VITALS: BP 134/71; PULSE 110; RESP 16; TEMP 98.3; O2SAT 96
[2018-02-04] MEDS: METHOCARBAMOL 500 MG TAB PO SCH ×2 (14:01→21:18)
[2018-02-04 17:33] VITALS: O2SAT 96
[2018-02-04 19:40] VITALS: BP 119/56; PULSE 73; RESP 16; TEMP 97.9; O2SAT 93
[2018-02-04] MEDS: REMOVE OLD PATCH T-DERMAL SCH (21:00)
[2018-02-05] VITALS (8 sets, daily range): BP systolic 132–170; BP diastolic 62–71; PULSE 57–71; RESP 16–17; TEMP 97.4–98.7; O2SAT 95–98
[2018-02-05] MEDS: METHOCARBAMOL 500 MG TAB PO SCH ×3 (05:11→20:23)
[2018-02-05] MEDS: LEVOTHYROXINE SODIUM 25 MCG TAB PO SCH (05:11)
[2018-02-05] MEDS: ACETAMINOPHEN/HYDROcodone 325 MG/5 MG TAB PO PRN (05:11)
[2018-02-05] MEDS: VENLAFAXINE HCL 75 MG TAB PO SCH (08:45)
[2018-02-05] MEDS: METOPROLOL TARTRATE 25 MG TAB PO SCH ×2 (08:45→20:24)
[2018-02-05] MEDS: GABAPENTIN 300 MG CAP PO SCH ×3 (08:46→17:38)
[2018-02-05] MEDS: DOCUSATE SODIUM 50 MG/SENNA 8.6 MG TAB PO SCH ×2 (08:46→20:24)
[2018-02-05] MEDS: AMIODARONE 200 MG TAB PO SCH (08:46)
[2018-02-05] MEDS: FAMOTIDINE 20 MG TAB PO SCH ×2 (08:46→20:24)
[2018-02-05] MEDS: APIXABAN 5 MG TABLET PO SCH ×2 (08:47→20:24)
[2018-02-05] MEDS: POLYETHYLENE GLYCOL 17 GM PKG PO SCH (08:47)
[2018-02-05] MEDS: REMOVE OLD DURAGESIC (FENTANYL) PATCH T-DERMAL SCH (08:48)
[2018-02-05] MEDS: LIDOCAINE HCL 5% PATCH T-DERMAL SCH (08:48)
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
[2018-02-05] MEDS: fentaNYL 50 MCG/HR PATCH T-DERMAL SCH (12:11)
[2018-02-05] MEDS: SODIUM CHLORIDE 0.9% FLUSH 10 ML FLUSH IV FLUSH PRN (20:23)
[2018-02-05] MEDS: ACETAMINOPHEN/HYDROcodone 325 MG/10 MG TAB PO PRN (20:25)
[2018-02-05] MEDS: REMOVE OLD PATCH T-DERMAL SCH (21:00)
[2018-02-06 00:15] VITALS: BP 158/66; PULSE 60; RESP 17; TEMP 98.3; O2SAT 98
[2018-02-06] MEDS: ACETAMINOPHEN/HYDROcodone 325 MG/10 MG TAB PO PRN ×5 (02:52→21:32)
[2018-02-06] MEDS: METHOCARBAMOL 500 MG TAB PO SCH ×3 (07:17→21:32)
[2018-02-06] MEDS: LEVOTHYROXINE SODIUM 25 MCG TAB PO SCH (07:17)
[2018-02-06 07:28] VITALS: BP 162/68; PULSE 64; RESP 18; TEMP 98.2; O2SAT 96
[2018-02-06] MEDS: METOPROLOL TARTRATE 25 MG TAB PO SCH ×2 (09:25→21:32)
[2018-02-06] MEDS: AMIODARONE 200 MG TAB PO SCH (09:25)
[2018-02-06] MEDS: POLYETHYLENE GLYCOL 17 GM PKG PO SCH (09:25)
[2018-02-06] MEDS: VENLAFAXINE HCL 75 MG TAB PO SCH (09:25)
[2018-02-06] MEDS: GABAPENTIN 300 MG CAP PO SCH ×2 (09:26→16:27)
[2018-02-06] MEDS: DOCUSATE SODIUM 50 MG/SENNA 8.6 MG TAB PO SCH ×2 (09:26→21:32)
[2018-02-06] MEDS: APIXABAN 5 MG TABLET PO SCH ×2 (09:26→21:32)
[2018-02-06] MEDS: FAMOTIDINE 20 MG TAB PO SCH ×2 (09:26→21:32)
[2018-02-06] MEDS: LIDOCAINE HCL 5% PATCH T-DERMAL SCH (09:26)
[2018-02-06 11:19] VITALS: BP 142/65; PULSE 63; RESP 18; TEMP 97.7; O2SAT 96
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
[2018-02-06 15:27] VITALS: BP 129/70; PULSE 102; RESP 18; TEMP 97.6; O2SAT 97
[2018-02-06 20:20] VITALS: BP 142/65; PULSE 60; RESP 18; TEMP 97.7; O2SAT 94
[2018-02-06] MEDS: REMOVE OLD PATCH T-DERMAL SCH (21:00)
[2018-02-07] VITALS (9 sets, daily range): BP systolic 140–157; BP diastolic 63–93; PULSE 57–108; RESP 16–18; TEMP 97.5–98.4; O2SAT 95–100
[2018-02-07] MEDS: METHOCARBAMOL 500 MG TAB PO SCH ×3 (05:31→21:21)
[2018-02-07] MEDS: LEVOTHYROXINE SODIUM 25 MCG TAB PO SCH (05:31)
[2018-02-07] MEDS: DOCUSATE SODIUM 50 MG/SENNA 8.6 MG TAB PO SCH ×2 (09:00→21:00)
[2018-02-07] MEDS: GABAPENTIN 300 MG CAP PO SCH ×3 (09:32→18:10)
[2018-02-07] MEDS: APIXABAN 5 MG TABLET PO SCH ×2 (09:32→21:20)
[2018-02-07] MEDS: FAMOTIDINE 20 MG TAB PO SCH ×2 (09:32→21:20)
[2018-02-07] MEDS: AMIODARONE 200 MG TAB PO SCH (09:32)
[2018-02-07] MEDS: METOPROLOL TARTRATE 25 MG TAB PO SCH ×2 (09:32→21:21)
[2018-02-07] MEDS: VENLAFAXINE HCL 75 MG TAB PO SCH (09:32)
[2018-02-07] MEDS: ACETAMINOPHEN/HYDROcodone 325 MG/10 MG TAB PO PRN (09:33)
[2018-02-07] MEDS: POLYETHYLENE GLYCOL 17 GM PKG PO SCH (09:34)
[2018-02-07] MEDS: LIDOCAINE HCL 5% PATCH T-DERMAL SCH (09:39)
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
[2018-02-07] MEDS: ACETAMINOPHEN/HYDROcodone 325 MG/5 MG TAB PO PRN ×2 (14:20→18:11)
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
[2018-02-07] MEDS: REMOVE OLD PATCH T-DERMAL SCH (21:00)
[2018-02-08 00:01] VITALS: BP 130/68; PULSE 87; PULSE 98; RESP 18; TEMP 98.2; O2SAT 97
[2018-02-08] MEDS: ACETAMINOPHEN/HYDROcodone 325 MG/5 MG TAB PO PRN ×3 (03:48→13:45)
[2018-02-08 04:00] VITALS: BP 136/63; PULSE 62; RESP 17; TEMP 98; O2SAT 96
[2018-02-08] MEDS: METHOCARBAMOL 500 MG TAB PO SCH ×2 (06:02→13:46)
[2018-02-08] MEDS: LEVOTHYROXINE SODIUM 25 MCG TAB PO SCH (06:02)
[2018-02-08 07:00] VITALS: BP 131/63; PULSE 69; RESP 18; TEMP 97.8; O2SAT 97
[2018-02-08] MEDS: LIDOCAINE HCL 5% PATCH T-DERMAL SCH (08:19)
[2018-02-08] MEDS: GABAPENTIN 300 MG CAP PO SCH ×2 (08:20→13:44)
[2018-02-08] MEDS: APIXABAN 5 MG TABLET PO SCH (08:20)
[2018-02-08] MEDS: METOPROLOL TARTRATE 25 MG TAB PO SCH (08:20)
[2018-02-08] MEDS: VENLAFAXINE HCL 75 MG TAB PO SCH (08:20)
[2018-02-08] MEDS: DOCUSATE SODIUM 50 MG/SENNA 8.6 MG TAB PO SCH (08:20)
[2018-02-08] MEDS: FAMOTIDINE 20 MG TAB PO SCH (08:20)
[2018-02-08] MEDS: AMIODARONE 200 MG TAB PO SCH (08:20)
[2018-02-08] MEDS: POLYETHYLENE GLYCOL 17 GM PKG PO SCH (08:22)
[2018-02-08 08:39] VITALS: O2SAT 97
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
[2018-02-08] MEDS: fentaNYL 50 MCG/HR PATCH T-DERMAL SCH (11:48)
[2018-02-08] MEDS: REMOVE OLD DURAGESIC (FENTANYL) PATCH T-DERMAL SCH (11:48)
[2018-02-08 12:00] VITALS: BP 168/72; PULSE 66; RESP 18; TEMP 97.4; O2SAT 95
== END 2018-02-08 17:00 | disposition home health service (06) | DRG 184 ==
LOC: NEPC 03:23 → NEDA 04:43 → N03B 07:54 → N06B 02-01 13:49
PROVIDERS: ADMIT Surgery; ATTEND Surgery
PROC: 30233N1 Transfusion of Nonautologous Red Blood Cells into Peripheral Vein, Percutaneous Approach (ICD-10-PCS; principal; 2018-01-31)
DX: S22.21XA Fracture of manubrium, initial encounter for closed fracture (principal); S36.899A Unspecified injury of other intra-abdominal organs, initial encounter; I48.91 Unspecified atrial fibrillation; Z86.73 Personal history of transient ischemic attack (TIA), and cerebral infarction without residual deficits; Z79.02 Long term (current) use of antithrombotics/antiplatelets; S22.22XA Fracture of body of sternum, initial encounter for closed fracture; V49.59XA Passenger injured in collision with other motor vehicles in traffic accident, initial encounter; E03.9 Hypothyroidism, unspecified; F32.9 Major depressive disorder, single episode, unspecified
CPT/HCPCS: 36430; 71045; 71260; 74177; 76937; 80048; 80053; 84155; 84484; 85007; 85014; 85018; 85025; 85027; 85384; 85610; 85730; 86850; 86900; 86901; 86920; 87641; 93005; 93306; 94150; 94618; 94640; 94667; 94668; 99285; J0131; J1170; J1940; J2270; J2405; J3480; J7030; J7120; P9016; Q9967